=== PATIENT | female | born 1965 | race Caucasian/White ===

== ENCOUNTER 2018-12-16 01:40 | Observation (INO) | payer OTHER ==
[~2018-12-16] VITALS: Ht 175.3 cm; Wt 67.2 kg
[2018-12-16 02:20] LABS: Calcium, Ionized (POC) 1.21 mmol/L (1.10-1.46); Chloride (POC) 104 mmol/L (98-108); Creatinine (POC) 0.9 mg/dL (0.6-1.0); Glucose (ISTAT POC) 115 mg/dL (70-99); Hemoglobin (POC) 10.9 g/dL (12.0-16.0); Potassium (POC) 4.3 mmol/L (3.5-5.5); Sodium (POC) 137 mmol/L (135-148); Total CO2 (POC) 22 mmol/L (21-32)
[2018-12-16 02:29] LABS: BASOPHILS ABSOLUTE AUTO 0.03 K/mm3 (0.00-0.23); BASOPHILS PERCENT AUTO 0 % (0-2); EOSINOPHILS ABSOLUTE AUTO 0.08 K/mm3 (0.00-0.68); EOSINOPHILS PERCENT AUTO 1 % (0-6); Hematocrit 33.7 % (33.0-51.0); Hemoglobin 10.7 g/dL (11.5-16.0); IMMATURE GRAN ABSOLUTE AUTO 0.02 K/mm3 (0.00-0.10); IMMATURE GRAN PERCENT AUTO 0 % (0-1); LYMPHOCYTES ABSOLUTE AUTO 1.08 K/mm3 (0.84-5.20); LYMPHOCYTES PERCENT AUTO 12 % (21-46); MONOCYTES ABSOLUTE AUTO 0.64 K/mm3 (0.16-1.47); MONOCYTES PERCENT AUTO 7 % (4-13); Mean Corpuscular HGB 27.2 pg (26.0-34.0); Mean Corpuscular HGB Conc 31.8 g/dL (31.5-36.5); Mean Corpuscular Volume 86 fL (80-100); Mean Platelet Volume 10.6 fL (9.1-12.4); NEUTROPHILS ABSOLUTE AUTO 7.32 K/mm3 (1.96-9.15); NEUTROPHILS PERCENT AUTO 80 % (41-73); Platelet Count 238 K/mm3 (150-400); RDW Coefficient Variation 12.9 % (11.7-14.2); RDW Standard Deviation 40.7 fL (35.1-46.3); Red Blood Cell Count 3.93 M/mm3 (3.80-5.20); White Blood Cell Count 9.17 K/mm3 (4.00-11.30)
[2018-12-16 02:50] LABS: Alanine Aminotransfer (ALT/SGP 18 U/L (12-78); Albumin, Blood 2.8 g/dL (3.4-5.0); Albumin/Globulin Ratio 0.6 (0.8-1.8); Alk Phos 99 U/L (50-136); Anion Gap 11 mmol/L (6-16); Aspartate Aminotrans (AST/SGOT 13 U/L (12-37); Bilirubin, Total 0.3 mg/dL (0.1-1.0); Blood Urea Nitrogen 22 mg/dL (8-24); Bun/Creatinine Ratio 29.8 (12.0-20.0); CO2, Blood 21 mmol/L (21-32); Calcium, Blood 9.3 mg/dL (8.5-10.1); Chloride, Blood 108 mmol/L (98-108); Creatinine, Blood 0.74 mg/dL (0.40-1.00); Ethanol (Alcohol), Blood, Med <3 mg/dL; Globulin, Blood 4.5 g/dL (2.2-4.0); Glomerular Filtration Rate >60 (60-); Glucose, Blood 112 mg/dL (70-99); Potassium, Blood 4.4 mmol/L (3.5-5.5); Sodium, Blood 140 mmol/L (136-145); Total Protein, Blood 7.3 g/dL (6.4-8.2)
[2018-12-16 03:54] LABS: Source, Urine Clean Catch
[2018-12-16 03:57] LABS: Bilirubin, Urine Neg (Neg); Blood, Urine 1+ (Neg); Glucose Qualitative, Urine Neg (Neg); Ketones, Urine Neg (Neg); Leukocyte Esterase, Urine Neg (Neg); Nitrite, Urine Neg (Neg); Protein, Urine Neg (Neg); Urobilinogen, Urine NORM (Normal)
[2018-12-16 04:00] LABS: Uric Acid, Blood 5.1 mg/dL (2.6-6.0)
[2018-12-16 04:02] LABS: Appearance, Urine Clear (Clear); Color, Urine Yellow (P-Yellow)
[2018-12-16 04:09] LABS: Red Blood Cells, Urine 0-2 /hpf (0-2); U Amphetamine Screen Not Detected; U Barbituate Screen Not Detected; U Benzodiazapine Screen Not Detected; U Buprenorphine Screen Not Detected; U Cannabinoids Screen Not Detected; U Cocaine Screen Not Detected; U Methadone Screen Not Detected; U Methamphetamine Screen Not Detected; U Opiates Screen Not Detected; U Oxycodone Screen Not Detected; U Phencyclidine Screen Not Detected; U Propoxyphene Screen Not Detected; White Blood Cells, Urine 0-2 /hpf (0-5)
[2018-12-16 04:10] LABS: Bacteria Few /hpf; Squamous Epithelial Cells Rare /hpf (Few)
--- NOTE | 2018-12-16 07:33 | NUR ---
SHIFT SUMMARY PT ARRIVED TO FLOOR AROUND 0515 THIS AM. AOX4, FOLLOWS DIRECTIONS & ANSWERS QUESTIONS APPROPRIATELY. PT FORGETS WHAT SHE IS TRYING TO SAY OR THE RIGHT WORD IN A SENTENCE, HAS WORD SALAD. OTHERWISE NO DEFICITS OR WEAKNESS NOTED. CARPENTER STREETCAR EQUAL. R FOOT IS REDDENED & HAS +1 EDEMA, PT REPORTS IT IS PAINFUL @ TIMES BUT DENIES IT HURTING W/ASSESSMET. PT DOES REPORT HAVING A DULL 4/10 HEADACHE & WAS MEDICATED W/15MG TORODOL PER ORDERS. TELE IS IN PLACE & PT IS SINUS TACHICARDIC W/HR 115. PT INDEPENDANTLY AMBULATES W/STEADY GAIT, LIMPS @ TIMES DUE TO PAIN IN R FOOT. CALL LIGHT IS IN REACH.
[2018-12-16 08:24] LABS: Hematocrit 31.8 % (33.0-51.0); Hemoglobin 10.1 g/dL (11.5-16.0); Mean Corpuscular HGB 27.1 pg (26.0-34.0); Mean Corpuscular HGB Conc 31.8 g/dL (31.5-36.5); Mean Corpuscular Volume 85 fL (80-100); Mean Platelet Volume 10.6 fL (9.1-12.4); Platelet Count 232 K/mm3 (150-400); RDW Standard Deviation 40.5 fL (35.1-46.3); Red Blood Cell Count 3.73 M/mm3 (3.80-5.20); White Blood Cell Count 9.58 K/mm3 (4.00-11.30)
[2018-12-16 08:48] LABS: Alanine Aminotransfer (ALT/SGP 17 U/L (12-78); Albumin, Blood 2.7 g/dL (3.4-5.0); Albumin/Globulin Ratio 0.6 (0.8-1.8); Alk Phos 98 U/L (50-136); Anion Gap 9 mmol/L (6-16); Aspartate Aminotrans (AST/SGOT 11 U/L (12-37); Bilirubin, Total 0.4 mg/dL (0.1-1.0); Blood Urea Nitrogen 18 mg/dL (8-24); Bun/Creatinine Ratio 31.5 (12.0-20.0); CO2, Blood 22 mmol/L (21-32); Calcium, Blood 9.5 mg/dL (8.5-10.1); Chloride, Blood 107 mmol/L (98-108); Creatinine, Blood 0.57 mg/dL (0.40-1.00); Globulin, Blood 4.5 g/dL (2.2-4.0); Glomerular Filtration Rate >60 (60-); Glucose, Blood 129 mg/dL (70-99); Potassium, Blood 4.1 mmol/L (3.5-5.5); Sodium, Blood 138 mmol/L (136-145); Total Protein, Blood 7.2 g/dL (6.4-8.2)
[2018-12-16 10:08] LABS: Adenovirus Not Detected (NOT DETECT); Bordetella pertussis Not Detected (NOT DETECT); Chlamydophila pneumoniae Not Detected (NOT DETECT); Coronavirus 229E Not Detected (NOT DETECT); Coronavirus HKU1 Not Detected (NOT DETECT); Coronavirus NL63 Not Detected (NOT DETECT); Coronavirus OC43 Not Detected (NOT DETECT); Human Metapneumovirus Not Detected (NOT DETECT); Human Rhinovirus/Enterovirus Not Detected (NOT DETECT); Influenza A Not Detected (NOT DETECT); Influenza A/2009-H1 Not Detected (NOT DETECT); Influenza A/H1 Not Detected (NOT DETECT); Influenza A/H3 Not Detected (NOT DETECT); Influenza B Not Detected (NOT DETECT); Mycoplasma pneumoniae Not Detected (NOT DETECT); Parainfluenza Virus 1 Not Detected (NOT DETECT); Parainfluenza Virus 2 Not Detected (NOT DETECT); Parainfluenza Virus 3 Not Detected (NOT DETECT); Parainfluenza Virus 4 Not Detected (NOT DETECT); Respiratory Syncytial Virus Not Detected (NOT DETECT)
--- NOTE | 2018-12-16 19:39 | NUR ---
SHIFT SUMMARY. A&OX4, SBA TO BATHROOM SECONDARY TO IV FLUIDS. PT EXPRESSIVE APHASIA OBSERVED THIS AM DURING INITIAL ASSESSMENT WITH LONG PAUSES DURING SENTENCES, USING THE WRONG WORDS AT TIMES. THESE SYMPTOMS HAVE GRADUALLY DECREASED THROUGHOUT THE SHIFT, ALMOST NON EXISTENT BY THE END OF THE SHIFT. L PUPIL 4MM, R PUPIL 3MM, EACH REACTIVE TO LIGHT BRISKLY. ALL OTHER NEURO ASSESSMENTS NEGATIVE. PT REPORTS MILD PAIN TO R FOOT THAT HAS SIGNIFICANTLY IMPROVED SINCE ADMISSION, PT DENIED NEED FOR PAIN MEDICATION. TOP OF R FOOT SLIGHTLY PINK, NO EDEMA. NO SOB, N/V.
--- NOTE | 2018-12-17 07:13 | NUR ---
a+o, cooperative, saline locked, room air, call light in reach, walking rounds completed with returning day staff, non productive cough
[2018-12-17] MEDS ORDERED: ATOR20 PO (12:07)
[2018-12-17] MEDS ORDERED: ASPI81CH PO (12:07)
[2018-12-17] MEDS ORDERED: Lopressor 25 mg25 MG PO (12:07)
[2018-12-17] MEDS ORDERED: CLOP75 PO (12:08)
[2018-12-17] MEDS ORDERED: IBUP600 PO (12:08)
--- NOTE | 2018-12-17 13:22 | NUR ---
1251 PT DISCHARGED HOME VIA PERSONAL VEHICLE ACCOMPANIED AND DRIVEN BY SIGNIFICANT OTHER. PT REQUESTED TO SELF AMBULATE TO FACILITY ENTRANCE. NEW RX FAXED TO [facility] PER PT REQUEST. D/C PAPERWORK REVIEWED WITH PT AND COPY PROVIDED. IV REMOVED. SS SET UP APPOINTMENT FOR PT TO ESTABLISH CARE WITH PCP. NO NEW CHANGES.
--- NOTE | 2018-12-17 17:25 | NUR ---
RECIEVED POSITIVE BLOOD CULTURE RESULT, PT HAS BEEN DISCHARGED HOME AT THIS TIME, DR. RUIZ NOTIFIED, NO NEW ORDERS.
== END 2018-12-17 12:51 | disposition home or self-care (01) ==
LOC: ER 01:40 → MEDS 01:41
PROVIDERS: Emergency Medicine; ADMIT Internal Medicine
DX: I63.9 Cerebral infarction, unspecified (principal); R47.01 Aphasia; E86.0 Dehydration; M10.9 Gout, unspecified; R00.0 Tachycardia, unspecified; Z87.891 Personal history of nicotine dependence; Z79.899 Other long term (current) drug therapy
CPT/HCPCS: 36415; 70450; 70496; 73630; 80047; 80053; 81001; 82550; 83605; 84145; 84550; 85014; 85025; 85027; 87040; 87077; 87486; 87581; 87633; 87798; 92507; 92523; 93005; 93010; 93306; 96361; 96365-59; 96372; 96375; 96375-59; 97165; 97535; 99285-25; G0378; G0480; J0690; J1650; J1885; J2930; J3010; J7030; J7512; Q9967

== ENCOUNTER 2018-12-20 11:59 | Observation (INO) | payer OTHER ==
[~2018-12-20] VITALS: Ht 175.3 cm; Wt 65.8 kg
[~2018-12-20 11:59] MED LIST: ASPI81CH PO; ATOR20 PO; CLOP75 PO; IBUP600 PO; Lopressor 25 mg25 MG PO
[2018-12-20 19:46] LABS: Source, Urine Clean Catch
[2018-12-20 19:52] LABS: Bilirubin, Urine Neg (Neg); Blood, Urine 2+ (Neg); Glucose Qualitative, Urine Neg (Neg); Ketones, Urine 2+ (Neg); Leukocyte Esterase, Urine Neg (Neg); Nitrite, Urine Neg (Neg); Protein, Urine Neg (Neg); Urobilinogen, Urine NORM (Normal)
[2018-12-20 20:00] LABS: Appearance, Urine Clear (Clear); Color, Urine Pale Yellow (P-Yellow)
[2018-12-20 20:01] LABS: Bacteria Rare /hpf; Red Blood Cells, Urine 0-2 /hpf (0-2); Squamous Epithelial Cells Few /hpf (Few); White Blood Cells, Urine Not Seen /hpf (0-5)
[2018-12-20 21:05] LABS: Percent Saturation 8.4 % (15.0-50.0)
[2018-12-21 01:40] LABS: Influenza A Negative (NEGATIVE); Influenza B Negative (NEGATIVE)
--- NOTE | 2018-12-21 04:26 | NUR ---
SHIFT SUMMARY RECEIVED REPORT FROM ED RN. ARRIVED TO MEDICAL UNIT VIA STRETCHER @ 0015. ARRIVED WITH AT BEDSIDE. SELF TRANSFER FROM STRETCHER TO BED. A/O, ABLE TO MAKE NEEDS KNOWN. STATED THAT SHE WOULD RATHER NOT HAVE FLU SWAB COMPLETED. EXPLAINED THAT WE WOULD NEED TO WEAR PPE TO PROTECT OURSELVES AND OTHER PATIENTS FOR THE REMAINDER OF STAY IF FLU SWAB UN-OBTAINED. SPOKE TO CLEANING PROFESSIONAL ABOUT PT UN-WILLING TO BE SWABBED AGAIN; CLEANING PROFESSIONAL SUGGESTED HAVING PATIENT SWAB HERSELF. PATIENT AGREEABLE. FLU SWAB NEGATIVE. ON RA WITH SATURATIONS >90%. APPEARED TO REST AFTER ADMISSION PROCESS COMPLETE. NO ACUTE CHANGES OVERNIGHT. BED IN LOWEST POSITION. CALL LIGHT AND BELONGINGS WITHIN REACH. WCTM. REPORT TO ONCOMING RN.
[2018-12-21] MEDS ORDERED: METHI10 PO (11:54)
[2018-12-21] MEDS ORDERED: ATEN50 PO (11:55)
--- NOTE | 2018-12-21 13:13 | NUR ---
PT DISCHARGED AT 1230 TO TRANSPORT HOME. PT REFUSED ESCORT AND WALKED OUT WITH . PT AOX4 AND COOPERATIVE OF CARE. PT STARTED SHIFT WITH TEMP OF 101.0 AND THIS WAS TREATED PER EMAR AND IN AND HOUR WAS 98.8. PT WAS FEELING GOOD AND WAS PLEASANT WITH ALL INTERACTIONS. IV REMOVED PRIOR TO DISCHARGE. ALL PAPERS REVIEWED AND EDUCATIONAL MATERIALS SENT WITH PT.
== END 2018-12-21 12:30 | disposition home or self-care (01) ==
LOC: ER 11:59 → MEDS 12:00
PROVIDERS: Emergency Medicine; ADMIT Internal Medicine
DX: E05.90 Thyrotoxicosis, unspecified without thyrotoxic crisis or storm (principal); I10 Essential (primary) hypertension; R00.0 Tachycardia, unspecified; M10.9 Gout, unspecified; D64.9 Anemia, unspecified; Z86.73 Personal history of transient ischemic attack (TIA), and cerebral infarction without residual deficits; Z79.899 Other long term (current) drug therapy; Z79.82 Long term (current) use of aspirin; Z79.02 Long term (current) use of antithrombotics/antiplatelets; Z87.891 Personal history of nicotine dependence
CPT/HCPCS: 36415; 71046; 81001; 82728; 83540; 83550; 87804; 93005; 93010; 99284-25; G0378

== ENCOUNTER 2019-04-07 10:37 | Day surgery (SDC) | payer OTHER ==
[~2019-04-07] VITALS: Ht 175.3 cm; Wt 56.0 kg
[~2019-04-07 10:37] MED LIST changes: +ASCO500 PO; +ATEN50 PO; -ATOR20 PO; +ATOR40TA PO; +FOLI1 PO; +FURO40 PO; +LISI5 PO; +METHI10 PO; +METO100ER PO; +OMEP20ER PO; +VITAFOL PO
--- NOTE | 2019-04-07 12:17 | NUR ---
PT DROWSY, BUT CONVERSING POST PROCEDURE; ANSWERING QUESTIONS APPROPRIATELY. PT DENIES PAIN OR DISCOMFORT. MONITOR SR 70'S, SPO2 100% ON 10 L MASK.
== END 2019-04-07 22:58 | disposition home or self-care (01) ==
LOC: MHTC 10:37
DX: I35.8 Other nonrheumatic aortic valve disorders (principal); I51.7 Cardiomegaly; I34.0 Nonrheumatic mitral (valve) insufficiency; E05.90 Thyrotoxicosis, unspecified without thyrotoxic crisis or storm; E87.5 Hyperkalemia; E78.5 Hyperlipidemia, unspecified; Z79.899 Other long term (current) drug therapy; Z79.82 Long term (current) use of aspirin; Z87.891 Personal history of nicotine dependence; Z86.73 Personal history of transient ischemic attack (TIA), and cerebral infarction without residual deficits; Z95.2 Presence of prosthetic heart valve
CPT/HCPCS: 93312; 93325; J2001; J2704; J7030

== ENCOUNTER → 2023-05-29 | Outpatient (CLI) | payer MEDICARE, OTHER ==
[2023-05-29 18:02] LABS: BASOPHILS ABSOLUTE AUTO 0.07 K/mm3 (0.00-0.23); BASOPHILS PERCENT AUTO 2 % (0-2); EOSINOPHILS ABSOLUTE AUTO 0.14 K/mm3 (0.00-0.68); EOSINOPHILS PERCENT AUTO 3 % (0-6); Hematocrit 44.1 % (33.0-51.0); Hemoglobin 14.6 g/dL (11.5-16.0); IMMATURE GRAN ABSOLUTE AUTO 0.01 K/mm3 (0.00-0.10); IMMATURE GRAN PERCENT AUTO 0 % (0-1); LYMPHOCYTES ABSOLUTE AUTO 0.75 K/mm3 (0.84-5.20); LYMPHOCYTES PERCENT AUTO 16 % (21-46); MONOCYTES ABSOLUTE AUTO 0.36 K/mm3 (0.16-1.47); MONOCYTES PERCENT AUTO 8 % (4-13); Mean Corpuscular HGB 30.4 pg (26.0-34.0); Mean Corpuscular HGB Conc 33.1 g/dL (31.5-36.5); Mean Corpuscular Volume 92 fL (80-100); Mean Platelet Volume 10.7 fL (9.1-12.4); NEUTROPHILS PERCENT AUTO 72 % (41-73); Platelet Count 198 K/mm3 (150-400); RDW Coefficient Variation 13.3 % (11.7-14.2); Red Blood Cell Count 4.81 M/mm3 (3.80-5.20); White Blood Cell Count 4.73 K/mm3 (4.00-11.30)
[2023-05-30 00:05] LABS: Free Thyroxine 0.88 ng/dL (0.70-1.60); Thyroid Stimulating Hormone 4.34 uIU/mL (0.360-4.800)
[2023-05-30 00:06] LABS: Albumin, Blood 3.9 g/dL (3.4-5.0); Albumin/Globulin Ratio 1.3 (0.8-1.8); Bilirubin, Total 0.5 mg/dL (0.1-1.0); Bun/Creatinine Ratio 11.3 (12.0-20.0); Calcium, Blood 8.9 mg/dL (8.5-10.1); Creatinine, Blood 0.97 mg/dL (0.40-1.00); Globulin, Blood 3.1 g/dL (2.2-4.0); Potassium, Blood 4.3 mmol/L (3.5-5.5)
== END | disposition home or self-care (01) ==
LOC: LAB 11:58 → LAB SHORT 11:58
PROVIDERS: Nurse Practitioner Family
DX: E89.0 Postprocedural hypothyroidism (principal); R19.5 Other fecal abnormalities; Z85.3 Personal history of malignant neoplasm of breast
CPT/HCPCS: 80053; 84439; 84443; 85025

== ENCOUNTER 2023-09-11 07:56 | Day surgery (SDC) | payer MEDICARE, OTHER ==
[~2023-09-11] VITALS: Ht 170.2 cm; Wt 81.9 kg
[2023-09-11] VITALS (17 sets, daily range): BP systolic 122–197; BP diastolic 69–131
[~2023-09-11 07:56] MED LIST changes: +LEVOTHYROXINE125 MC9 PO
--- NOTE | 2023-09-11 09:18 | NUR ---
Ambulatory in Day Surgery. History, Chart, Medications and Allergies reviewed before start of procedure. Lungs clear T/O to Auscultation. Patient confirms NPO status and agrees with scheduled surgery. Pre-Op teaching done. Pt verbalizes understanding. Patient States Post-Procedure ride home has been arranged.
--- NOTE | 2023-09-11 09:43 | NUR ---
09/11/23 0943 Nilsa Burks HISTORY, CHART, MEDICATIONS AND ALLERGIES REVIEWED BEFORE START OF PROCEDURE. PATIENT CONFIRMS NPO STATUS AND AGREES WITH SCHEDULED PROCEDURE. 3-LEAD EKG REVIEWED WITH PHYSICIAN PRIOR TO START OF PROCEDURE. MONITOR INTACT WITH CONTINUOUS PULSE OXIMETRY,CAPNOGRAPHY, 3-LEAD EKG, INTERMITTENT BP. SUPPLEMENTAL O2 TO BE TITRATED THROUGHOUT PROCEDURE TO MAINTAIN O2 SATURATION ABOVE 90%. PATIENT DETERMINED TO BE ASA APPROPRIATE FOR PROPOFOL SEDATION PRIOR TO START OF PROCEDURE BY DR. HUDSON. MALLAMPATI CLASS 2 AIRWAY: COMPLETE VISUALIZATION OF THE UVULA.
--- NOTE | 2023-09-11 10:36 | NUR ---
Discharge instructions reviewed with patient. Patient verbalizes understanding. Copy given to patient to take home. Patient States Post-Procedure ride home has been arranged. Discharged via wheelchair to private car for ride home.
== END 2023-09-11 10:30 | disposition home or self-care (01) ==
LOC: ORSCMMR 07:56 → ORD 09:00 → ORSCMMR 10:30
PROVIDERS: Internal Medicine Gastroenterology
PROC: 0DBK8ZX Excision of Ascending Colon, Via Natural or Artificial Opening Endoscopic, Diagnostic (ICD-10-PCS; principal; 2023-09-11 09:00)
PROC: 0DBL8ZX Excision of Transverse Colon, Via Natural or Artificial Opening Endoscopic, Diagnostic (ICD-10-PCS; principal; 2023-09-11 09:00)
PROC: 0DBN8ZX Excision of Sigmoid Colon, Via Natural or Artificial Opening Endoscopic, Diagnostic (ICD-10-PCS; principal; 2023-09-11 09:00)
PROC: 0DBC8ZX Excision of Ileocecal Valve, Via Natural or Artificial Opening Endoscopic, Diagnostic (ICD-10-PCS; principal; 2023-09-11 09:00)
DX: R19.4 Change in bowel habit (principal); K63.5 Polyp of colon; E03.9 Hypothyroidism, unspecified; Z79.899 Other long term (current) drug therapy
CPT/HCPCS: 88305; J2704; J7120